=== PATIENT | female | born 1970 | race Caucasian/White ===

== ENCOUNTER 2023-10-15 09:57 | Emergency (ER) | payer OTHER ==
[~2023-10-15] VITALS: Ht 154.9 cm; Wt 43.2 kg
[2023-10-15 10:15] VITALS: BP 118/54; PULSE 86; RESP 18; TEMP 98.8
== END 2023-10-15 12:09 | disposition left against medical advice (07) ==
LOC: EMS 09:57
DX: R19.7 Diarrhea, unspecified (principal); R53.81 Other malaise; R11.2 Nausea with vomiting, unspecified; R51.9 Headache, unspecified; Z53.21 Procedure and treatment not carried out due to patient leaving prior to being seen by health care provider